=== PATIENT | female | born 1990 | race Caucasian/White ===

== ENCOUNTER 2020-06-04 06:48 | Outpatient (NON) | payer OTHER, SELFPAY ==
[2020-06-04 23:56] LABS: SARS-CoV-2 RNA PCR Negative
== END 2020-06-04 06:49 ==
PROVIDERS: PCP Family Medicine; Visit Provider Family Medicine
DX: Z20.828 Contact with and (suspected) exposure to other viral communicable diseases (principal); R05 Cough
CPT/HCPCS: 87635; C9803; U0003

== ENCOUNTER 2020-07-23 06:54 | Outpatient (NON) | payer OTHER, SELFPAY ==
[2020-07-24 16:06] LABS: SARS-CoV-2 RNA PCR Negative
== END 2020-07-23 06:55 ==
LOC: ANHCOVIDDT 07:02
PROVIDERS: PCP Family Medicine; Visit Provider Nurse Practitioner Family
DX: Z20.828 Contact with and (suspected) exposure to other viral communicable diseases (principal); R50.9 Fever, unspecified; R05 Cough; R52 Pain, unspecified
CPT/HCPCS: 87635; C9803; U0003